=== PATIENT | female | born 1980 | race Caucasian/White ===

== ENCOUNTER → 2018-02-14 | Outpatient (CLI) | payer BC ==
[2013-09-19 20:34] VITALS: BP 146/87
[~2018-02-14] MED LIST: ATIVAN0.5 MG PO; LORAZEPAM0.5 MG PO; METOPROLOL SUCC25 M1 PO; NO HOME MEDICATIONS
[2018-02-14 10:46] LABS: EOS # 0.1 (0.04-0.40); EOS % 0.8 % (1.0-5.0); HEMATOCRIT 44.1 % (37.0-47.0); HEMOGLOBIN 14.3 g/dL (12.5-16.0); LYMPH# 1.9 (1.50-4.00); MEAN CELL VOLUME 92 fl (78-100); MEAN CORPUSCULAR HEMOGLOBIN 30 pg (27-31); MEAN CORPUSCULAR HGB CONC 32 g/dL (33-37); MEAN PLATELET VOLUME 10.1 fl (7.4-10.4); MONO # 0.7 (0.20-0.80); NEU # 6.6 (1.40-6.50); PLATELET COUNT 315 K/mm3 (130-400); RED BLOOD COUNT 4.81 M/mm3 (4.10-5.30); RED CELL DISTRIBUTION WIDTH 12.7 % (11.5-14.5); WHITE BLOOD COUNT 9.2 K/mm3 (4.8-10.8)
[2018-02-14 11:00] LABS: ALBUMIN 4.5 g/dL (3.5-5.0); CALCIUM 9.4 mg/dL (8.4-10.2); POTASSIUM 4.3 mmol/L (3.6-5.0); TOTAL BILIRUBIN 0.6 mg/dL (0.2-1.3); TOTAL PROTEIN 7.4 g/dL (6.3-8.2)
== END ==
LOC: LAB 10:32
PROVIDERS: Family Medicine
DX: Z01.419 Encounter for gynecological examination (general) (routine) without abnormal findings (principal)

== ENCOUNTER → 2019-04-07 | Outpatient (CLI) | payer BC ==
[2013-09-19 20:34] VITALS: BP 146/87
== END ==
LOC: RAD 08:40
DX: R60.0 Localized edema (principal)

== ENCOUNTER → 2019-04-09 | Outpatient (CLI) | payer BC ==
[2013-09-19 20:34] VITALS: BP 146/87
== END ==
LOC: VAS 16:45 → RAD 17:00
DX: I08.2 Rheumatic disorders of both aortic and tricuspid valves (principal)

== ENCOUNTER → 2021-01-02 | Outpatient (CLI) | payer BC ==
[2021-01-02 09:51] LABS: BASO # 0.03 K/mm3 (0.02-0.10); EOS # 0.27 K/mm3 (0.04-0.40); EOS % 4.1 % (1.0-5.0); HEMATOCRIT 42.7 % (37.0-47.0); HEMOGLOBIN 14.1 g/dL (12.5-16.0); LYMPH# 1.94 K/mm3 (1.50-4.00); MEAN CELL VOLUME 94 fl (78-100); MEAN CORPUSCULAR HEMOGLOBIN 31 pg (27-31); MEAN CORPUSCULAR HGB CONC 33 g/dL (33-37); MEAN PLATELET VOLUME 10.4 fl (7.4-10.4); MONO # 0.54 K/mm3 (0.20-0.80); NEU # 3.79 K/mm3 (1.40-6.50); PLATELET COUNT 316 K/mm3 (130-400); RED BLOOD COUNT 4.53 M/mm3 (4.10-5.30); RED CELL DISTRIBUTION WIDTH 12.3 % (11.5-14.5); WHITE BLOOD COUNT 6.6 K/mm3 (4.8-10.8)
[2021-01-02 09:53] LABS: ALBUMIN 3.9 g/dL (3.5-5.0)
[2021-01-02 09:55] LABS: CALCIUM 9.2 mg/dL (8.3-10.5)
[2021-01-02 09:56] LABS: TOTAL PROTEIN 6.8 g/dL (6.4-8.3)
[2021-01-02 09:58] LABS: TOTAL BILIRUBIN 0.5 mg/dL (0.2-1.2)
== END ==
LOC: LAB 09:10
PROVIDERS: Family Medicine
DX: Z00.00 Encounter for general adult medical examination without abnormal findings (principal); E78.5 Hyperlipidemia, unspecified

== ENCOUNTER 2021-03-13 14:38 | Emergency (ER) | payer BC ==
[2021-03-13] MEDS ORDERED: ATIVAN0.5 MG PO ×4 (15:34→16:55)
[2021-03-13 15:51] VITALS: BP 159/100
== END 2021-03-13 15:50 | disposition home or self-care (01) ==
LOC: ED 14:38
DX: F41.9 Anxiety disorder, unspecified (principal); I10 Essential (primary) hypertension; E66.9 Obesity, unspecified; Z79.899 Other long term (current) drug therapy

== ENCOUNTER → 2022-12-19 | Outpatient (CLI) | payer BC | LOC: MAMMO 14:02 | DX: Z12.31 Encounter for screening mammogram for malignant neoplasm of breast (principal) ==

== ENCOUNTER 2023-01-15 10:40 | Emergency (ER) | payer BC ==
[~2023-01-15] VITALS: Ht 160 cm; Wt 99.1 kg
[2023-01-15] MEDS ORDERED: WELLBUTRIN XL300 M1 PO (11:02)
[2023-01-15] MEDS ORDERED: LISINOPRIL20 MG PO (11:02)
[2023-01-15] MEDS ORDERED: MULTIVITAMIN1 EACH PO (11:18)
[2023-01-15] MEDS ORDERED: MAGNESIUM CALCIUM PO (11:18)
[2023-01-15] MEDS ORDERED: FISH OIL1 IU PO (11:18)
[2023-01-15 12:09] VITALS: BP 139/90
== END 2023-01-15 12:11 | disposition home or self-care (01) ==
LOC: ED 10:40
DX: F41.9 Anxiety disorder, unspecified (principal); Z79.899 Other long term (current) drug therapy

== ENCOUNTER → 2024-03-09 | Day surgery (SDC) | payer BC ==
[~2024-03-09] MED LIST changes: +FISH OIL1 IU PO; +LISINOPRIL20 MG PO; +Lidocaine PF 2% (20 MG/ML) 2 ML VIAL ONE; +MAGNESIUM CALCIUM PO; +MULTIVITAMIN1 EACH PO; +WELLBUTRIN XL300 M1 PO
== END ==
LOC: MSO 07:27
DX: Z12.11 Encounter for screening for malignant neoplasm of colon (principal)
CPT/HCPCS: 00812; J2704; J7120